=== PATIENT | female | born 1980 | race Two or more races ===

== ENCOUNTER 2018-08-08 16:48 | Inpatient (IN) | payer BC ==
[~2018-08-08] VITALS: Ht 152.4 cm; Wt 74.5 kg
[2018-08-08 20:21] VITALS: BP 142/67; RESP 18
[2018-08-08 20:30] VITALS: Ht 152.4 cm; Wt 74.5 kg
[2018-08-08 20:47] VITALS: PULSE 86
[2018-08-08] MEDS ORDERED: ACETAMINOPHEN 325 MG TAB PO PRN (22:30)
[2018-08-08] MEDS ORDERED: ONDANSETRON 4 MG INJ IV PRN (22:30)
[2018-08-08] MEDS: CEFTRIAXONE 1 GM/50 ML (PMX) 50 ML IVPB SCH (23:06)
[2018-08-08] MEDS: DEXTROSE 5%-0.9% NACL 1,000 ML IV SCH (23:06)
[2018-08-09 01:43] VITALS: BP 134/72; PULSE 85; RESP 18
[2018-08-09] MEDS: PANTOPRAZOLE 40 MG INJ IV SCH (05:52)
[2018-08-09 07:54] VITALS: BP 132/63; PULSE 86; RESP 18
[2018-08-09] MEDS: DEXTROSE 5%-0.9% NACL 1,000 ML IV SCH ×2 (09:10→19:06)
--- NOTE | 2018-08-09 10:48 | QN ---
Documentation Comment seen and examined LAURIE GUADARRAMA MD Aug 09, 2018 10:48
--- NOTE | 2018-08-09 12:06 | HP ---
DATE OF ADMISSION: 08/08/2018 REASON FOR ADMISSION: Transferred from [facility] secondary to abdominal pain. HISTORY OF PRESENT ILLNESS: This is a 38-year-old woman with no past medical history who presented t o [facility] on 08/06/2018 secondary to a right upper quadrant pain. According to the patien t, she was having severe right upper quadrant pain, nausea and vomiting. The patient had some interm ittent fevers and chills. The patient denied any prior episodes. Patient was found to have lipase o f 404. Amylase was 2656, but ETOH levels are less than 5. AST was 632, ALT 447, alkaline phosphatas e 88. CBC showed white count of 14.4, hemoglobin 13.5. The patient had a CT of the abdomen and pelv is that showed findings consistent with acute pancreatitis, no evidence of pseudocyst or distended ga llbladder to suggest ultrasound correlation. The patient had abdominal ultrasound done that showed c holelithiasis, no evidence of ductal dilatation. Mildly diffusely enlarged pancreas. There is low s uspicion for pancreatitis. The patient was treated symptomatically and was also seen by surgery and the surgeon wanted to wait until the pancreatitis is resolved before going for cholecystectomy; [facility], the patient was transferred due to insurance reasons. PAST MEDICAL HISTORY: None. ALLERGIES: None. PAST SURGICAL HISTORY: None. SOCIAL HISTORY: Denies any history of alcohol or any recreational drug use. FAMILY HISTORY: Daughter had a cholecystectomy. REVIEW OF SYSTEMS: The patient still complains of some right upper quadrant pain. Denies any nausea , vomiting, denies any headache, any blurry vision. Denies any chest pain, any shortness of breath. Denies any hematemesis, any melena, any blood per rectum. Denies any focal neurological deficit. PHYSICAL EXAMINATION: VITAL SIGNS: Currently, blood pressure 132/63, afebrile, heart rate is 86, saturating 97%. GENERAL: The patient is awake, alert, oriented, appears to be in mild distress secondary to right up per quadrant pain. HEENT: No scleral icterus. NECK: Supple. HEART: Regular rhythm. LUNGS: Clear to auscultate bilaterally. ABDOMEN: Some tenderness present in the right upper quadrant region. Positive bowel sounds. EXTREMITIES: No clubbing, cyanosis, or edema. DIAGNOSTIC DATA: Potassium of 3.3, BUN of 4, creatinine 0.65, AST is 0.31, ALT is 118, total bilirub in is 0.3. Lipase is down to 153, white count 8.1, hemoglobin 11.2, platelet count 273. CT of the a bdomen and pelvis which was done on 08/05/2018. Findings consistent with acute pancreatitis. No leonel dence of pseudocyst. Distended gallbladder. Suggest ultrasound correlation and abdominal ultrasound which was done on 08/06/2018 showed cholelithiasis, no evidence of ductal dilatation, mildly diffuse enlarged pancreas suspicious for pancreatitis. ASSESSMENT AND PLAN: This is a 38-year-old female who presented with: 1. Acute pancreatitis, likely secondary to gallstones. 2. Cholelithiasis. 3. Abnormal liver function tests, resolved. 4. Hypokalemia. 5. Obesity. PLAN: At this period of time, the patient is admitted to med/surg unit. We will continue the patien t on fluids, IV antibiotics. However, clinically the patient seemed to be improving. We will also c all surgical consultation. Rest of the treatment will depend on the patient's hospitalization course . Dictated By: LAURIE GARDUNO/ZARA Conf#: [id number] DID#: [id number] CC: FILI PENALOZA MD;*End*
--- NOTE | 2018-08-09 12:41 | CONS ---
Assessment/Plan Assessment/Plan Assessment/Plan (Daily) 1. Pancreatitis: Likely secondary to cholelithiasis; improving -Refeeding okay from surgical ; low-fat low-cholesterol diet -gi consult 2. Cholelithiasis -Recommend eventual cholecystectomy 3. Transaminitis with mildly elevated bilirubin from outside hospital: Much improved; likely passed stone -Monitor 4. Abdominal pain: Likely 2/2 #1 and 2 -Pain management 5. Obesity BMI: 32 -diet and exercise optimization -encourage weight loss Thank you. Patient seen and examined in collaboration with Dr. Piero Plascencia. Consultation Date/Type/Reason Admit Date/Time Aug 08, 2018 at 20:10 Date of Consultation: Aug 09, 2018 Type of Consult Surgical Reason for Consultation Pancreatitis, gallstones Requesting Provider: LAURIE GUADARRAMA MD Date/Time of Note DATE: 08/09/18 TIME: 12:35 Hx of Present Illness Kathy Martini is a 38-year-old woman with no significant past medical history who presented to outside hospital with complaints of right upper quadrant pain. Abdominal pain is described as severe and persistent. Associated symptoms include nausea with vomiting, nonbloody emesis, subjective fevers and chills. She denies chest pain, palpitations, congested cough, change in bowel or bladder habits, dysuria, melena, hematemesis, hematochezia, trauma to the abdomen. On workup, she was noted to have pancreatitis with lipase of 1234, as well as transaminitis and minimally elevated bilirubin. Notably, she was also noted to have cholelithiasis on ultrasound. She was transferred to [facility] for insurance reasons. General surgery was asked to evaluate. 12 point review of systems is performed and is negative except for as stated in HPI. Past Medical History Obesity Medications Current Medications Dextrose/Sodium Chloride 1,000 ml @ 100 mls/hr Q10H IV Last administered on 08/09/18at 09:10; Admin Dose 100 MLS/HR; Start 08/08/18 at 22:30 Pantoprazole (Protonix Iv) 40 mg DAILY@06 IV Last administered on 08/09/18at 05:52; Admin Dose 40 MG; Start 08/09/18 at 06:00 Ceftriaxone Sodium 50 ml @ 100 mls/hr Q24H IVPB Last administered on 08/08/18at 23:06; Admin Dose 100 MLS/HR; Start 08/08/18 at 22:30 Acetaminophen (Tylenol Tab) 650 mg Q6H PRN PO MILD PAIN(1-3)OR ELEVATED TEMP; Start 08/08/18 at 22:30 Ondansetron HCl (Zofran Inj) 4 mg Q6H PRN IV NAUSEA AND/OR VOMITING; Start 08/08/18 at 22:30 Morphine Sulfate (morphine) 2 mg Q4H PRN IV SEVERE PAIN LEVEL 7-10; Start 08/08/18 at 22:30 Influenza Virus Vaccine Quadrival (Fluzone) 0.5 ml ONCE ONCE IM* ; Start 08/11/18 at 10:00; Stop 08/11/18 at 10:01 Allergies: Coded Allergies: No Known Allergy (Unverified , 08/08/18) Past Surgical History Past Surgical Hx: no surgical history Family History Significant Family History: no pertinent family hx Social History Smoking Status: Never smoker Exam/Review of Systems Exam Vitals Vital Signs Date Temp Pulse Resp B/P (MAP) Pulse Ox O2 O2 Flow FiO2 Time Delivery Rate 08/09/18 98.0 86 18 132/63 97 07:54 (86) Intake and Output 08/08/18 08/08/18 08/09/18 1515:00 23:00 07:00 IntakeIntake Total 650 ml BalanceBalance 650 ml Constitutional: alert, oriented Psych: nl mood/affect; No anxiety Head: normocephalic, atraumatic Eyes: nl conjunctiva, EOMI, nl lids, nl sclera ENMT: nl external ears & nose, nl lips & teeth, mucosa pink and moist Neck: supple, non-tender Respiratory: normal air movement; No congested cough, No labored breathing Cardiovascular: regular rate and rhythm, nl pulses Gastrointestinal: soft, non-tender Musculoskeletal: nl extremities to inspection, nl gait and stance Extremities: normal pulses Neurological: nl mental status, nl speech, nl strength Skin: rash or lesions Lymph: nl lymph nodes Results Result Diagram: 08/09/1843908/09/18439 Results 24hrs Laboratory Tests Test 08/09/18 04:40 White Blood Count 8.1 Red Blood Count 3.59 L Hemoglobin 11.2 L Hematocrit 33.4 L Mean Corpuscular Volume 93.0 Mean Corpuscular Hemoglobin 31.2 Mean Corpuscular Hemoglobin Concent 33.5 Red Cell Distribution Width 11.8 Platelet Count 272 Mean Platelet Volume 10.0 Immature Granulocytes % 0.400 Neutrophils % 54.7 Lymphocytes % 33.3 Monocytes % 7.8 Eosinophils % 3.2 Basophils % 0.6 Nucleated Red Blood Cells % 0.0 Immature Granulocytes # 0.030 Neutrophils # 4.4 Lymphocytes # 2.7 Monocytes # 0.6 Eosinophils # 0.3 Basophils # 0.1 Nucleated Red Blood Cells # 0.0 Sodium Level 144 Potassium Level 3.3 L Chloride Level 102 Carbon Dioxide Level 33 H Anion Gap 9 Blood Urea Nitrogen 4 L Creatinine 0.65 Est Glomerular Filtrat Rate mL/min > 60 Glucose Level 119 Calcium Level 8.8 Total Bilirubin 0.3 Direct Bilirubin 0.00 Indirect Bilirubin 0.3 Aspartate Amino Transf (AST/SGOT) 31 Alanine Aminotransferase (ALT/SGPT) 118 H Alkaline Phosphatase 79 Total Protein 7.3 Albumin 3.6 Globulin 3.70 H Albumin/Globulin Ratio 0.97 Amylase Level 72 Lipase 153 Medications Medication Current Medications Dextrose/Sodium Chloride 1,000 ml @ 100 mls/hr Q10H IV Last administered on 08/09/18at 09:10; Admin Dose 100 MLS/HR; Start 08/08/18 at 22:30 Pantoprazole (Protonix Iv) 40 mg DAILY@06 IV Last administered on 08/09/18at 05:52; Admin Dose 40 MG; Start 08/09/18 at 06:00 Ceftriaxone Sodium 50 ml @ 100 mls/hr Q24H IVPB Last administered on 08/08/18at 23:06; Admin Dose 100 MLS/HR; Start 08/08/18 at 22:30 Acetaminophen (Tylenol Tab) 650 mg Q6H PRN PO MILD PAIN(1-3)OR ELEVATED TEMP; Start 08/08/18 at 22:30 Ondansetron HCl (Zofran Inj) 4 mg Q6H PRN IV NAUSEA AND/OR VOMITING; Start 08/08/18 at 22:30 Morphine Sulfate (morphine) 2 mg Q4H PRN IV SEVERE PAIN LEVEL 7-10; Start 08/08/18 at 22:30 Influenza Virus Vaccine Quadrival (Fluzone) 0.5 ml ONCE ONCE IM* ; Start 08/11/18 at 10:00; Stop 08/11/18 at 10:01 ARIADNE PINA NP Aug 09, 2018 12:41
--- NOTE | 2018-08-09 13:14 | CONS ---
Assessment/Plan Assessment/Plan Hospital Course (Demo Recall) Summary Assessment and Plan: Assessment: Gallstone pancreatitis -Likely stone passage Cholelithiasis -Surgery consulted, possible arthroscopic cholecystectomy tomorrow Elevated ALT-trending down Plan: Continue clear liquid diet Monitor labs, if increase in LFTs are noted we will plan for MRCP Endoscopy - risks/benefits/alternatives/indications of procedure and sedation/anesthesia discussed with patient who states understanding and gives informed consent to proceed. F/u surgical recommendations Patient seen in collaboration with Dr. Clifford CC: CALVIN CLIFFORD MD ; Consultation Date/Type/Reason Admit Date/Time Aug 08, 2018 at 20:10 Date of Consultation: Aug 09, 2018 Type of Consult GI Reason for Consultation Gallstone pancreatitis Date/Time of Note DATE: 08/09/18 TIME: 13:02 Hx of Present Illness This is a 38-year-old female who was admitted to [facility] for complaints of severe upper abdominal pain there she underwent extensive imaging findings cholelithiasis as well as evidence consistent with acute pancreatitis as well as elevated lipase. Of note no evidence of biliary dilation, common bile duct measured 5 mm. Hospitalist at [facility] for about 4 days until stabilized and transferred to [facility] for insurance reasons. Labs checked here show a normal total bilirubin as well as normal alkaline phosphatase AST is within normal limits and ALT is elevated at 118, Lipase is 153, and mild normocytic anemia is noted. At time evaluation patient denies nausea/vomiting, she c/o mild upper abdominal pain with palpation. She is currently on a clear liquid diet tolerating well. She has been assessed by surgery with possible plan of lap cholecystectomy tomorrow. Review of Systems: A 12 system, review was conducted and is negative except as noted in the HPI or here. Past Medical History Medications Current Medications Dextrose/Sodium Chloride 1,000 ml @ 100 mls/hr Q10H IV Last administered on 08/09/18at 09:10; Admin Dose 100 MLS/HR; Start 08/08/18 at 22:30 Pantoprazole (Protonix Iv) 40 mg DAILY@06 IV Last administered on 08/09/18at 05:52; Admin Dose 40 MG; Start 08/09/18 at 06:00 Ceftriaxone Sodium 50 ml @ 100 mls/hr Q24H IVPB Last administered on 08/08/18at 23:06; Admin Dose 100 MLS/HR; Start 08/08/18 at 22:30 Acetaminophen (Tylenol Tab) 650 mg Q6H PRN PO MILD PAIN(1-3)OR ELEVATED TEMP; Start 08/08/18 at 22:30 Ondansetron HCl (Zofran Inj) 4 mg Q6H PRN IV NAUSEA AND/OR VOMITING; Start 08/08/18 at 22:30 Morphine Sulfate (morphine) 2 mg Q4H PRN IV SEVERE PAIN LEVEL 7-10; Start 08/08/18 at 22:30 Influenza Virus Vaccine Quadrival (Fluzone) 0.5 ml ONCE ONCE IM* ; Start 08/11/18 at 10:00; Stop 08/11/18 at 10:01 Allergies: Coded Allergies: No Known Allergy (Unverified , 08/08/18) Past Surgical History Past Surgical Hx: no surgical history Social History Smoking Status: Never smoker Exam/Review of Systems Exam Vitals Vital Signs Date Temp Pulse Resp B/P (MAP) Pulse Ox O2 O2 Flow FiO2 Time Delivery Rate 08/09/18 98.0 86 18 132/63 97 07:54 (86) Intake and Output 08/08/18 08/08/18 08/09/18 1515:00 23:00 07:00 IntakeIntake Total 650 ml BalanceBalance 650 ml Exam PHYSICAL EXAMINATION: GENERAL: Well developed, well nourished, alert & oriented x 3, in no acute distress SKIN: No lesions EYES: Pupils equal reactive to light, no discharge. EARS/NOSE AND THROAT: Ears normal, nose normal, oropharynx normal, oral membranes well hydrated without lesions. NECK: Supple, no masses. CHEST: Inspection within normal limits. CARDIOVASCULAR: Heart: Regular rate and rhythm, no murmurs. RESPIRATORY: Lungs clear to auscultation. GASTROINTESTINAL AND LIVER: Abdomen: Soft, upper abdominal tenderness, non- distended, no hernias, no masses, no organomegaly, no ascites, no guarding, no rebound tenderness, normoactive bowel sounds. Rectal: Deferred. EXTREMITIES: No cyanosis, clubbing or edema. Results Result Diagram: 08/09/1843908/09/18439 Results 24hrs Laboratory Tests Test 08/09/18 04:40 White Blood Count 8.1 Red Blood Count 3.59 L Hemoglobin 11.2 L Hematocrit 33.4 L Mean Corpuscular Volume 93.0 Mean Corpuscular Hemoglobin 31.2 Mean Corpuscular Hemoglobin Concent 33.5 Red Cell Distribution Width 11.8 Platelet Count 272 Mean Platelet Volume 10.0 Immature Granulocytes % 0.400 Neutrophils % 54.7 Lymphocytes % 33.3 Monocytes % 7.8 Eosinophils % 3.2 Basophils % 0.6 Nucleated Red Blood Cells % 0.0 Immature Granulocytes # 0.030 Neutrophils # 4.4 Lymphocytes # 2.7 Monocytes # 0.6 Eosinophils # 0.3 Basophils # 0.1 Nucleated Red Blood Cells # 0.0 Sodium Level 144 Potassium Level 3.3 L Chloride Level 102 Carbon Dioxide Level 33 H Anion Gap 9 Blood Urea Nitrogen 4 L Creatinine 0.65 Est Glomerular Filtrat Rate mL/min > 60 Glucose Level 119 Calcium Level 8.8 Total Bilirubin 0.3 Direct Bilirubin 0.00 Indirect Bilirubin 0.3 Aspartate Amino Transf (AST/SGOT) 31 Alanine Aminotransferase (ALT/SGPT) 118 H Alkaline Phosphatase 79 Total Protein 7.3 Albumin 3.6 Globulin 3.70 H Albumin/Globulin Ratio 0.97 Amylase Level 72 Lipase 153 Medications Medication Current Medications Dextrose/Sodium Chloride 1,000 ml @ 100 mls/hr Q10H IV Last administered on 08/09/18at 09:10; Admin Dose 100 MLS/HR; Start 08/08/18 at 22:30 Pantoprazole (Protonix Iv) 40 mg DAILY@06 IV Last administered on 08/09/18at 05:52; Admin Dose 40 MG; Start 08/09/18 at 06:00 Ceftriaxone Sodium 50 ml @ 100 mls/hr Q24H IVPB Last administered on 08/08/18at 23:06; Admin Dose 100 MLS/HR; Start 08/08/18 at 22:30 Acetaminophen (Tylenol Tab) 650 mg Q6H PRN PO MILD PAIN(1-3)OR ELEVATED TEMP; Start 08/08/18 at 22:30 Ondansetron HCl (Zofran Inj) 4 mg Q6H PRN IV NAUSEA AND/OR VOMITING; Start 08/08/18 at 22:30 Morphine Sulfate (morphine) 2 mg Q4H PRN IV SEVERE PAIN LEVEL 7-10; Start 08/08/18 at 22:30 Influenza Virus Vaccine Quadrival (Fluzone) 0.5 ml ONCE ONCE IM* ; Start 08/11/18 at 10:00; Stop 08/11/18 at 10:01 VALERIO MAKI Aug 09, 2018 13:14
[2018-08-09 14:23] VITALS: BP 127/68; PULSE 77; RESP 18
[2018-08-09] MEDS ORDERED: POTASSIUM CHLORIDE (SR) 20 MEQ TAB PO ONE (19:00)
[2018-08-09 20:30] VITALS: BP 140/63; PULSE 79; RESP 19
[2018-08-09] MEDS: CEFTRIAXONE 1 GM/50 ML (PMX) 50 ML IVPB SCH (22:26)
[2018-08-10] VITALS (22 sets, daily range): BP systolic 109–146; BP diastolic 53–75; PULSE 74–112; RESP 12–18
[2018-08-10] MEDS: morphine 2 MG INJ IV PRN ×4 (01:16→22:04)
[2018-08-10] MEDS ORDERED: DIPHENOXYLATE/ATROPINE TAB PO PRN (01:30)
[2018-08-10] MEDS: DEXTROSE 5%-0.9% NACL 1,000 ML IV SCH ×3 (04:34→22:41)
[2018-08-10] MEDS: PANTOPRAZOLE 40 MG INJ IV SCH (05:57)
--- NOTE | 2018-08-10 06:57 | PREAC ---
Date/Time of Note Date/Time of Note DATE: 08/10/18 TIME: 06:57 Anesthesia Eval and Record Evaluation Time Pre-Procedure Interview DATE: 08/10/18 TIME: 06:57 Age 38 Sex female NPO: 8 hrs Preoperative diagnosis Gallstone pancreatitis Planned procedure Laparoscopic cholecystectomy Past Medical History Past Medical History: Includes GI: Obesity Heme: Anemia Infection(s): Other (R/o C. Diff) Surgery & Anesthesia Issues No known issue Meds Anticoagulation: No Beta Zhang within 24 hr: No Reason Beta Zhang not given: Pt. not on B-Zhang Current Medications Dextrose/Sodium Chloride 1,000 ml @ 100 mls/hr Q10H IV Last administered on 08/10/18at 04:34; Admin Dose 100 MLS/HR; Start 08/08/18 at 22:30 Pantoprazole (Protonix Iv) 40 mg DAILY@06 IV Last administered on 08/10/18at 05:57; Admin Dose 40 MG; Start 08/09/18 at 06:00 Ceftriaxone Sodium 50 ml @ 100 mls/hr Q24H IVPB Last administered on 08/09/18at 22:26; Admin Dose 100 MLS/HR; Start 08/08/18 at 22:30 Acetaminophen (Tylenol Tab) 650 mg Q6H PRN PO MILD PAIN(1-3)OR ELEVATED TEMP; Start 08/08/18 at 22:30 Ondansetron HCl (Zofran Inj) 4 mg Q6H PRN IV NAUSEA AND/OR VOMITING; Start 08/08/18 at 22:30 Morphine Sulfate (morphine) 2 mg Q4H PRN IV SEVERE PAIN LEVEL 7-10 Last administered on 08/10/18at 01:16; Admin Dose 2 MG; Start 08/08/18 at 22:30 Influenza Virus Vaccine Quadrival (Fluzone) 0.5 ml ONCE ONCE IM* ; Start at 10:00; Stop 08/11/18 at 10:01 Diphenoxylate HCl/ Atropine (Lomotil) 1 tab Q6H PRN PO DIARRHEA; Start 08/10/18 at 01:30 Meds reviewed: Yes Allergies Coded Allergies: No Known Allergy (Unverified , 08/08/18) Allergies Reviewed: Yes Labs/Studies Labs Reviewed: Reviewed by anesthesiologist Result Diagram: 08/10/18 0436 08/09/18 0440 Laboratory Tests 08/10/18 04:36 test: Negative Pre-procedure Exam Last vitals Vital Signs Date Temp Pulse Resp B/P (MAP) Pulse Ox O2 O2 Flow FiO2 Time Delivery Rate 08/10/18 98.4 76 18 137/68 97 02:37 (91) Airway: Adequate mouth opening Mallampati: Mallampati II Teeth: Normal Lung: Normal Heart: Normal ASA Physical Status ASA physical status: 2 Emergency: None Planned Anesthetic General/MAC: ETT Planned Pain Management Parenteral pain med Pre-operative Attestations Prior to commencing anesthesia and surgery, the patient was re-evaluated, there was verification of: *The patient's identity *The results of appropriate recent lab work and preoperative vital signs *The above evaluation not changing prior to induction *Anesthetic plan, risk benefits, alternative and complications discussed with p atient/family; questions answered; patient/family understands, accepts and wishes to proceed. DUY KIM MD Aug 10, 2018 06:57
[2018-08-10] MEDS ORDERED: BUPIVACAINE 0.5%/EPI (SDV) 30 ML INJ ONE (07:00)
[2018-08-10] MEDS ORDERED: LIDOCAINE 1% (MPF) 30 ML INJ ONE (07:00)
[2018-08-10] MEDS ORDERED: IOHEXOL 300MG/ML 30 ML BTL ONE (07:01)
[2018-08-10] MEDS ORDERED: LIDOCAINE 2% (SDV) 5 ML INJ ONE (07:36)
[2018-08-10] MEDS ORDERED: SUCCINYLCHOLINE CHLORIDE 100 MG/5 ML SYG IV ONE (07:36)
[2018-08-10] MEDS ORDERED: NEOSTIGMINE 3 MG/3 ML SYRINGE ONE (07:36)
[2018-08-10] MEDS ORDERED: ROCURONIUM 50 MG INJ ONE (07:36)
[2018-08-10] MEDS ORDERED: PROPOFOL 20 ML ONE (07:36)
[2018-08-10] MEDS ORDERED: MEPERIDINE 100 MG INJ ONE (07:36)
[2018-08-10] MEDS ORDERED: GLYCOPYRROLATE 0.4 MG INJ ONE (07:36)
--- NOTE | 2018-08-10 07:48 | PN ---
Date/Time of Note Date/Time of Note DATE: 08/10/18 TIME: 07:45 Assessment/Plan Lines/Catheters IV Catheter Type (from Nrs): Peripheral IV Assessment/Plan Chief Complaint/Hosp Course 1. Pancreatitis: Likely secondary to cholelithiasis; resolved -Refeeding okay from surgical standpoint- npo for sx 2. Cholelithiasis -cholecystectomy today 3. Transaminitis with mildly elevated bilirubin from outside hospital: Much improved; likely passed stone -Monitor 4. Abdominal pain: Likely 2/2 #1 and 2; improved -Pain management 5. Obesity BMI: 32 -diet and exercise optimization -encourage weight loss Thank you. Patient seen and examined in collaboration with Dr. Piero Plascencia. Subjective 24 Hr Interval Summary OR today. No fevers, chills, sob, congested cough, cp, palpitations, pina, dizziness, n/v/d/dysuria. Exam/Review of Systems Vital Signs Vitals Vital Signs Date Temp Pulse Resp B/P (MAP) Pulse Ox O2 O2 Flow FiO2 Time Delivery Rate 08/10/18 98.4 76 18 137/68 97 02:37 (91) Intake and Output 08/09/18 08/09/18 08/10/18 1515:00 23:00 07:00 IntakeIntake Total 350 ml 1650 ml 1250 ml OutputOutput Total 100 ml BalanceBalance 350 ml 1550 ml 1250 ml Exam Free Text/Dictation Constitutional: alert, oriented Psych: nl mood/affect; No anxiety Head: normocephalic, atraumatic Eyes: nl conjunctiva, EOMI, nl lids, nl sclera ENMT: nl external ears & nose, nl lips & teeth, mucosa pink and moist Neck: supple, non-tender Respiratory: normal air movement; No congested cough, No labored breathing Cardiovascular: regular rate and rhythm, nl pulses Gastrointestinal: soft, min-tender BUQ, nd Musculoskeletal: nl extremities to inspection, nl gait and stance Extremities: normal pulses Neurological: nl mental status, nl speech, nl strength Skin: rash or lesions Lymph: nl lymph nodes Results Result Diagram: 08/10/18 0436 08/10/18 0436 ARIADNE PINA NP Aug 10, 2018 07:48
[2018-08-10] MEDS ORDERED: BUPIVACAINE 0.5%/EPI (SDV) 30 ML INJ INJ ONE (07:50)
[2018-08-10] MEDS ORDERED: LIDOCAINE 1% (MPF) 30 ML INJ INJ ONE (07:50)
[2018-08-10] MEDS ORDERED: METOCLOPRAMIDE 10 MG INJ IV PRN (08:00)
[2018-08-10] MEDS ORDERED: HYDROmorphONE 1 MG/5 ML IV SYRINGE IV PRN ×3 (08:00)
[2018-08-10] MEDS ORDERED: ONDANSETRON 4 MG INJ IV PRN (08:00)
[2018-08-10] MEDS ORDERED: OXYCODONE/ACETAMINOPHEN (5/325) TAB PO PRN ×2 (08:00)
[2018-08-10] MEDS ORDERED: FENTAnyl 50 MCG/ML VIAL IV PRN ×3 (08:00)
[2018-08-10] MEDS ORDERED: EPHEDrine SULFATE 50 MG/5 ML SYG IV PRN (08:00)
[2018-08-10] MEDS ORDERED: MEPERIDINE 25 MG INJ IV PRN (08:00)
[2018-08-10] MEDS ORDERED: hydrALAzine 20 MG INJ IV PRN (08:00)
[2018-08-10] MEDS ORDERED: LABETALOL HCL 20MG INJ IV PRN (08:00)
[2018-08-10] MEDS ORDERED: DIPHENHYDRAMINE 50 MG INJ IV PRN (08:00)
[2018-08-10] MEDS ORDERED: MIDAZOLAM 1 MG/ML 2 ML INJ IV PRN (08:00)
[2018-08-10] MEDS ORDERED: METOCLOPRAMIDE 10 MG INJ ONE (08:06)
[2018-08-10] MEDS ORDERED: ONDANSETRON 4 MG INJ ONE (08:06)
[2018-08-10] MEDS ORDERED: metroNIDAZOLE 500 MG/NS (PMX) 100 ML IVPB ONE (09:32)
[2018-08-10] MEDS ORDERED: CEFAZOLIN 1 GM INJ ONE (09:32)
--- NOTE | 2018-08-10 09:51 | OPR ---
Date/Time of Note Date/Time of Note DATE: 08/10/18 TIME: 09:46 Operative Report Free Text/Dictation Preoperative Diagnosis: Symptomatic cholelithiasis Pancreatitis Abnormal LFTs BMI 32 Postoperative Diagnosis: Symptomatic cholelithiasis Pancreatitis Abnormal LFTs BMI 32 Abnormal liver color Necrotic tissue superior to lv hepatis between stomach and gallbladder Operation(s) Performed: 1. 3 port laparoscopic cholecystectomy 2. Laparoscopic liver wedge resection biopsy 3. ICG fluorescence cholangiography 4. Intraoperative cholangiogram 5. [place], [id number] 6. Laparoscopic guided bilateral transversus abdominis plane block Surgeon: Lotus Barber MD School Physical Therapist: Mary Ellen Hlot NP Anesthesia: general, local, & regional Anesthesiologist: BRI Dorado MD Estimated Blood Loss: 30 ml's Specimens: Gallbladder Liver Necrotic tissue on lv hepatis Tubes/Drains: 19F Jacoby Complications: None Pt Condition Post Procedure: stable Disposition: PACU Indications: 38-year-old female with gallstones, abnormal LFTs, pancreatitis, and abdominal pain here for cholecystectomy. Risks include but are not limited to bleeding, infection, abscess, seroma, damage to intestines, damage to the liver, damage to biliary tree, hernia formation, chronic pain, biloma, need for reoperations or further surgeries, [place], stroke, PE, DVT, pneumonia, organ failures, or even . Procedure Description: Patient was brought and placed supine on the operating table SCDs were placed, preoperative antibiotics were administered, all pressure points were well- padded, and after induction of anesthesia patient was prepped and draped in usual sterile fashion and timeout was performed. Incision was made in the supraumbilical region, Veress was safely inserted, and after a negative SIP test, abdomen was insufflated to 15mmHg. Veress was removed and 5mm port was safely inserted. Laparoscopy was performed with a 5 mm 30 scope. No injuries were identified. The liver looks somewhat abnormal color. Gallbladder is bit thickened tissue and possible cholecystitis. There is necrotic tissue right on lv hepatis between stomach and the gallbladder. This is biopsied and sent to pathology. 12 mm port is placed in subxiphoid under direct visualization followed by another 5 mm port in the right upper quadrant. All port sites were injected with quarter percent Marcaine with epi and 1% lidocaine prior to any incisions. Bilateral transversus abdominis plane block was performed under laparoscopic visualization to aid with pain control intra-and postoperatively. Patient was placed in reverse Trendelenburg and right side up on gallbladder was retracted superolaterally. The gallbladder was large and distended. Using electrocautery and blunt dissection I was able to identify the cystic artery and cystic duct. The duct tapered into the gallbladder. Full critical angle view was identified. However just to make sure of the anatomy due to this necrotic tissue top-down approach was performed on the gallbladder was fully from the liver using electrocautery. ICG fluorescence cholangiography was performed. The liver lit up. However the gallbladder and the bowel does not lit up. At this point I elected to perform formal cholangiogram. Cystotomy was created cholangiogram catheter inserted and cholangiography performed. There is no filling defects. Small bowel easily fills up. Hepatic duct also are identified. At this point cholangiogram catheter was removed clips were placed twice proximally once distally on the duct and transected. The ulcer was clipped twice proximally once distally and then transected. Hemostasis was obtained. Gallbladder was placed in an Endo Catch bag and removed through the subxiphoid port site. There was complete hemostasis. Due to the abnormality of the liver decision was made to perform liver wedge re section which was done with electrocautery and scissor with complete hemostasis right after. The specimen was sent to pathology for further evaluation. 19F jacoby drain was placed through lateral incision to drain the liver and gallbladder sites. 12 mm made port site fascia was closed with Endo Close of an 0 Vicryl in a [id number] manner. Ports and CO2 were removed under direct visualization. Next complete hemostasis. Wounds were thoroughly irrigated skin was closed with 4-0 Monocryl in subcuticular fashion. Dermabond was applied. Patient was extubated and transferred to recovery room in stable condition and all counts were correct and the end of the operation 2. LOTUS BARBER MD Aug 10, 2018 09:51
[2018-08-10] MEDS ORDERED: morphine 2 MG INJ IV PRN (10:00)
[2018-08-10] MEDS ORDERED: ACETAMINOPHEN 325 MG TAB PO PRN (10:00)
[2018-08-10] MEDS ORDERED: HYDROCODONE/APAP (5/325) TAB PO PRN ×2 (10:00)
[2018-08-10] MEDS ORDERED: IBUPROFEN 600 MG TAB PO PRN (10:00)
--- NOTE | 2018-08-10 11:44 | PN ---
Date/Time of Note Date/Time of Note DATE: 08/10/18 TIME: 11:42 Assessment/Plan VTE Prophylaxis Risk score (from Ns)>0 risk: 3 SCD applied (from Ns): Yes Pharmacological prophylaxis: NA/contraindicated Pharm contraindication: low risk/ambulating Lines/Catheters IV C[facility]ter Type (from [email or web address] Peripheral IV Assessment/Plan Assessment/Plan his is a 38-year-old female who presented with: 1. Acute pancreatitis, likely secondary to gallstones. Post lap jake pod # 0 2. Cholelithiasis. 3. Abnormal liver function tests, resolved. 4. Hypokalemia. 5. Obesity.' pLAN -Postop care -Pain control -Fluids -Diet per surgery Result Diagram: 08/10/186 08/10/18 0436 Results 24hrs Laboratory Tests Test 08/09/18 18:25 08/10/18 04:36 Urine Test NEGATIVE White Blood Count 8.8 Red Blood Count 3.35 L Hemoglobin 10.6 L Hematocrit 31.1 L Mean Corpuscular Volume 92.8 Mean Corpuscular Hemoglobin 31.6 Mean Corpuscular Hemoglobin Concent 34.1 Red Cell Distribution Width 11.7 Platelet Count 267 Mean Platelet Volume 9.8 Immature Granulocytes % 0.300 Neutrophils % 75.9 Lymphocytes % 16.1 Monocytes % 6.4 Eosinophils % 1.0 Basophils % 0.3 Nucleated Red Blood Cells % 0.0 Immature Granulocytes # 0.030 Neutrophils # 6.7 Lymphocytes # 1.4 Monocytes # 0.6 Eosinophils # 0.1 Basophils # 0.0 Nucleated Red Blood Cells # 0.0 Prothrombin Time 13.5 Prothrombin Time Ratio 1.1 INR International Normalized Ratio 1.02 Activated Partial Thromboplast Time 34.7 Sodium Level 144 Potassium Level 3.7 Chloride Level 107 Carbon Dioxide Level 28 Anion Gap 9 Blood Urea Nitrogen 3 L Creatinine 0.63 Est Glomerular Filtrat Rate mL/min > 60 Glucose Level 117 Calcium Level 8.8 Total Bilirubin 0.3 Direct Bilirubin 0.00 Indirect Bilirubin 0.3 Aspartate Amino Transf (AST/SGOT) 29 Alanine Aminotransferase (ALT/SGPT) 90 H Alkaline Phosphatase 82 Total Protein 6.8 Albumin 3.4 Globulin 3.40 H Albumin/Globulin Ratio 1.00 Subjective 24 Hr Interval Summary Free Text/Dictation Patient seen in the OR. Patient is status post cholecystectomy and wedge resection of the liver Exam/Review of Systems Exam Vitals Vital Signs Date Temp Pulse Resp B/P (MAP) Pulse Ox O2 O2 Flow FiO2 Time Delivery Rate 08/10/18 98.7 92 16 120/56 95 Room Air 10:48 (77) 08/10/18 2.0 10:08 Intake and Output 08/09/18 08/09/18 08/10/18 1515:00 23:00 07:00 IntakeIntake Total 350 ml 1650 ml 1250 ml OutputOutput Total 100 ml BalanceBalance 350 ml 1550 ml 1250 ml Exam Tender to palpation in the epigastrium TAVARES Drain in place Results Results 24hrs Laboratory Tests Test 08/09/18 18:25 08/10/18 04:36 Urine Test NEGATIVE White Blood Count 8.8 Red Blood Count 3.35 L Hemoglobin 10.6 L Hematocrit 31.1 L Mean Corpuscular Volume 92.8 Mean Corpuscular Hemoglobin 31.6 Mean Corpuscular Hemoglobin Concent 34.1 Red Cell Distribution Width 11.7 Platelet Count 267 Mean Platelet Volume 9.8 Immature Granulocytes % 0.300 Neutrophils % 75.9 Lymphocytes % 16.1 Monocytes % 6.4 Eosinophils % 1.0 Basophils % 0.3 Nucleated Red Blood Cells % 0.0 Immature Granulocytes # 0.030 Neutrophils # 6.7 Lymphocytes # 1.4 Monocytes # 0.6 Eosinophils # 0.1 Basophils # 0.0 Nucleated Red Blood Cells # 0.0 Prothrombin Time 13.5 Prothrombin Time Ratio 1.1 INR International Normalized Ratio 1.02 Activated Partial Thromboplast Time 34.7 Sodium Level 144 Potassium Level 3.7 Chloride Level 107 Carbon Dioxide Level 28 Anion Gap 9 Blood Urea Nitrogen 3 L Creatinine 0.63 Est Glomerular Filtrat Rate mL/min > 60 Glucose Level 117 Calcium Level 8.8 Total Bilirubin 0.3 Direct Bilirubin 0.00 Indirect Bilirubin 0.3 Aspartate Amino Transf (AST/SGOT) 29 Alanine Aminotransferase (ALT/SGPT) 90 H Alkaline Phosphatase 82 Total Protein 6.8 Albumin 3.4 Globulin 3.40 H Albumin/Globulin Ratio 1.00 Medications Medication Current Medications Dextrose/Sodium Chloride 1,000 ml @ 100 mls/hr Q10H IV Last administered on 08/10/18at 04:34; Admin Dose 100 MLS/HR; Start 08/08/18 at 22:30 Pantoprazole (Protonix Iv) 40 mg DAILY@06 IV Last administered on 08/10/18at 05:57; Admin Dose 40 MG; Start 08/09/18 at 06:00 Ceftriaxone Sodium 50 ml @ 100 mls/hr Q24H IVPB Last administered on 08/09/18at 22:26; Admin Dose 100 MLS/HR; Start 08/08/18 at 22:30 Acetaminophen (Tylenol Tab) 650 mg Q6H PRN PO MILD PAIN(1-3)OR ELEVATED TEMP; Start 08/08/18 at 22:30 Ondansetron HCl (Zofran Inj) 4 mg Q6H PRN IV NAUSEA AND/OR VOMITING; Start 08/08/18 at 22:30 Morphine Sulfate (morphine) 2 mg Q4H PRN IV SEVERE PAIN LEVEL 7-10 Last administered on 08/10/18at 01:16; Admin Dose 2 MG; Start 08/08/18 at 22:30 Influenza Virus Vaccine Quadrival (Fluzone) 0.5 ml ONCE ONCE IM* ; Start 08/11/18 at 10:00; Stop 08/11/18 at 10:01 Diphenoxylate HCl/ Atropine (Lomotil) 1 tab Q6H PRN PO DIARRHEA; Start 08/10/18 at 01:30 Hydromorphone HCl (Dilaudid) 0.2 mg PACU PRN IV MILD PAIN 1-3; Start 08/10/18 at 08:00; Stop 08/10/18 at 15:00 Hydromorphone HCl (Dilaudid) 0.4 mg PACU PRN IV MOD PAIN 4-6; Start 08/10/18 at 08:00; Stop 08/10/18 at 15:00 Hydromorphone HCl (Dilaudid) 0.6 mg PACU PRN IV SEVERE PAIN 7-10; Start 08/10/18 at 08:00; Stop 08/10/18 at 15:00 Fentanyl (Sublimaze) 25 mcg PACU ORDER PRN IV MILD PAIN 1-3; Start 08/10/18 at 08:00; Stop 08/10/18 at 15:00 Fentanyl (Sublimaze) 50 mcg PACU ORDER PRN IV MOD PAIN 4-6; Start 08/10/18 at 08:00; Stop 08/10/18 at 15:00 Fentanyl (Sublimaze) 75 mcg PACU ORDER PRN IV SEVERE PAIN 7-10; Start 08/10/18 at 08:00; Stop 08/10/18 at 15:00 Oxycodone/ Acetaminophen (Percocet (5/ 325)) 1 tab PACU ORDER PRN PO .PAIN 1-5; Start 08/10/18 at 08:00; Stop 08/10/18 at 15:00 Oxycodone/ Acetaminophen (Percocet (5/ 325)) 2 tab PACU ORDER PRN PO .PAIN 6-10; Start 08/10/18 at 08:00; Stop 08/10/18 at 15:00 Ondansetron HCl (Zofran Inj) 4 mg PACU ORDER PRN IV NAUSEA/VOMITING; Start 08/10/18 at 08:00; Stop 08/10/18 at 15:00 Metoclopramide HCl (Reglan) 10 mg PACU ORDER PRN IV NAUSEA/VOMITING; Start 08/10/18 at 08:00; Stop 08/10/18 at 15:00 Labetalol HCl (Labetalol) 5 mg PACU ORDER PRN IV HIGH BLOOD PRESSURE; Start 08/10/18 at 08:00; Stop 08/10/18 at 15:00 Hydralazine HCl (Apresoline) 5 mg PACU ORDER PRN IV HIGH BLOOD PRESSURE; Start 08/10/18 at 08:00; Stop 08/10/18 at 15:00 Ephedrine Sulfate 5 mg PACU ORDER PRN IV BLOOD PRESSURE SUPPORT; Start 08/10/18 at 08:00; Stop 08/10/18 at 15:00 Meperidine HCl (Demerol) 25 mg PACU ORDER PRN IV .RIGORS; Start 08/10/18 at 08:00; Stop 08/10/18 at 15:00 Diphenhydramine HCl (Benadryl) 25 mg PACU ORDER PRN IV .PRURITUS; Start 08/10/18 at 08:00; Stop 08/10/18 at 15:00 Midazolam HCl (Versed) 0.5 mg PACU ORDER PRN IV .ANXIETY; Start 08/10/18 at 08:00; Stop 08/10/18 at 15:00 Acetaminophen (Tylenol Tab) 650 mg Q6H PRN PO MILD PAIN(1-3)OR ELEVATED TEMP; Start 08/10/18 at 10:00 Ibuprofen (Motrin) 600 mg Q6H PRN PO PAIN LEVEL 1-3 ; Start 08/10/18 at 10:00 Acetaminophen/ Hydrocodone Bitart ([place] (5/325)) 2 tab Q4H PRN PO Pain 7-10; Start 08/10/18 at 10:00 Acetaminophen/ Hydrocodone Bitart ([place] (5/325)) 1 tab Q4H PRN PO Pain 4-6; Start 08/10/18 at 10:00 Morphine Sulfate (morphine) 2 mg Q2H PRN IV Breakthrough PAIN; Start 08/10/18 at 10:00 LAURIE GUADARRAMA MD Aug 10, 2018 11:44
--- NOTE | 2018-08-10 13:25 | PAC ---
Date/Time of Note Date/Time of Note DATE: 08/10/18 TIME: 13:25 Post-Anesthesia Notes Post-Anesthesia Note Last documented vital signs Vital Signs Date Temp Pulse Resp B/P (MAP) Pulse Ox O2 O2 Flow FiO2 Time Delivery Rate 08/10/18 98.7 92 16 120/56 95 Room Air 10:48 (77) 08/10/18 2.0 10:08 Activity: WNL Respiratory function: WNL Cardiovascular function: WNL Mental status: Baseline Pain reasonably controlled: Yes Hydration appropriate: Yes Nausea/Vomiting absent: Yes DUY KIM MD Aug 10, 2018 13:25
--- NOTE | 2018-08-10 14:21 | PN ---
Date/Time of Note Date/Time of Note DATE: 08/10/18 TIME: 14:12 Assessment/Plan VTE Prophylaxis Risk score (from Nsg)>0 risk: 3 SCD applied (from Nsg): Yes Pharmacological prophylaxis: other (scds) Lines/Catheters IV Catheter Type (from Nrs): Peripheral IV Assessment/Plan Hospital Course Summary Assessment and Plan: Assessment: Gallstone pancreatitis -Likely stone passage Cholelithiasis -S/p laparoscopic cholecystectomy, laparoscopic liver wedge resection biopsy, Intraoperative cholangiogram (neg for filling defect) Elevated ALT-trending down Plan: Diet per surgery Pain management IVF D/c planning per hospitalist/surgery team Patient seen in collaboration with Dr. Clifford Subjective: Course reviewed with nursing staff Patient interviewed and examined All labs, imaging and other results reviewed The patient resting in bed, lethargic from medication, daughter at bedside currently no c/o pain with pain medication. Encourage ambulation abd po intake as tolerated PHYSICAL EXAMINATION: GENERAL: Alert & oriented x 3, lethargic from sedation SKIN: Surgical incisions, TAVARES drain EYES: Pupils equal reactive to light, no discharge. EARS/NOSE AND THROAT: Ears normal, nose normal, oropharynx normal, oral membranes well hydrated without lesions. NECK: Supple, no masses. CHEST: Inspection within normal limits. CARDIOVASCULAR: Heart: Regular rate and rhythm, no murmurs. RESPIRATORY: Lungs clear to auscultation. GASTROINTESTINAL AND LIVER: Abdomen: Soft, upper abdominal tenderness, non-distended, no hernias, no masses, no organomegaly, no ascites, no guarding, no rebound tenderness, normoactive bowel sounds. Rectal: Deferred. EXTREMITIES: No cyanosis, clubbing or edema. Result Diagram: 08/10/18 0436 08/10/18 0436 Results 24hrs Laboratory Tests Test 08/09/18 18:25 08/10/18 04:36 Urine Test NEGATIVE White Blood Count 8.8 Red Blood Count 3.35 L Hemoglobin 10.6 L Hematocrit 31.1 L Mean Corpuscular Volume 92.8 Mean Corpuscular Hemoglobin 31.6 Mean Corpuscular Hemoglobin Concent 34.1 Red Cell Distribution Width 11.7 Platelet Count 267 Mean Platelet Volume 9.8 Immature Granulocytes % 0.300 Neutrophils % 75.9 Lymphocytes % 16.1 Monocytes % 6.4 Eosinophils % 1.0 Basophils % 0.3 Nucleated Red Blood Cells % 0.0 Immature Granulocytes # 0.030 Neutrophils # 6.7 Lymphocytes # 1.4 Monocytes # 0.6 Eosinophils # 0.1 Basophils # 0.0 Nucleated Red Blood Cells # 0.0 Prothrombin Time 13.5 Prothrombin Time Ratio 1.1 INR International Normalized Ratio 1.02 Activated Partial Thromboplast Time 34.7 Sodium Level 144 Potassium Level 3.7 Chloride Level 107 Carbon Dioxide Level 28 Anion Gap 9 Blood Urea Nitrogen 3 L Creatinine 0.63 Est Glomerular Filtrat Rate mL/min > 60 Glucose Level 117 Calcium Level 8.8 Total Bilirubin 0.3 Direct Bilirubin 0.00 Indirect Bilirubin 0.3 Aspartate Amino Transf (AST/SGOT) 29 Alanine Aminotransferase (ALT/SGPT) 90 H Alkaline Phosphatase 82 Total Protein 6.8 Albumin 3.4 Globulin 3.40 H Albumin/Globulin Ratio 1.00 Exam/Review of Systems Exam Vitals Vital Signs Date Temp Pulse Resp B/P (MAP) Pulse Ox O2 O2 Flow FiO2 Time Delivery Rate 08/10/18 98.7 92 16 120/56 95 Room Air 10:48 (77) 08/10/18 2.0 10:08 Intake and Output 08/09/18 08/09/18 08/10/18 1414:59 22:59 06:59 IntakeIntake Total 350 ml 1600 ml 1300 ml OutputOutput Total 100 ml BalanceBalance 350 ml 1500 ml 1300 ml Results Results 24hrs Laboratory Tests Test 08/09/18 18:25 08/10/18 04:36 Urine Test NEGATIVE White Blood Count 8.8 Red Blood Count 3.35 L Hemoglobin 10.6 L Hematocrit 31.1 L Mean Corpuscular Volume 92.8 Mean Corpuscular Hemoglobin 31.6 Mean Corpuscular Hemoglobin Concent 34.1 Red Cell Distribution Width 11.7 Platelet Count 267 Mean Platelet Volume 9.8 Immature Granulocytes % 0.300 Neutrophils % 75.9 Lymphocytes % 16.1 Monocytes % 6.4 Eosinophils % 1.0 Basophils % 0.3 Nucleated Red Blood Cells % 0.0 Immature Granulocytes # 0.030 Neutrophils # 6.7 Lymphocytes # 1.4 Monocytes # 0.6 Eosinophils # 0.1 Basophils # 0.0 Nucleated Red Blood Cells # 0.0 Prothrombin Time 13.5 Prothrombin Time Ratio 1.1 INR International Normalized Ratio 1.02 Activated Partial Thromboplast Time 34.7 Sodium Level 144 Potassium Level 3.7 Chloride Level 107 Carbon Dioxide Level 28 Anion Gap 9 Blood Urea Nitrogen 3 L Creatinine 0.63 Est Glomerular Filtrat Rate mL/min > 60 Glucose Level 117 Calcium Level 8.8 Total Bilirubin 0.3 Direct Bilirubin 0.00 Indirect Bilirubin 0.3 Aspartate Amino Transf (AST/SGOT) 29 Alanine Aminotransferase (ALT/SGPT) 90 H Alkaline Phosphatase 82 Total Protein 6.8 Albumin 3.4 Globulin 3.40 H Albumin/Globulin Ratio 1.00 Medications Medication Current Medications Dextrose/Sodium Chloride 1,000 ml @ 100 mls/hr Q10H IV Last administered on 08/10/18at 13:20; Admin Dose 100 MLS/HR; Start 08/08/18 at 22:30 Pantoprazole (Protonix Iv) 40 mg DAILY@06 IV Last administered on 08/10/18at 05:57; Admin Dose 40 MG; Start 08/09/18 at 06:00 Ceftriaxone Sodium 50 ml @ 100 mls/hr Q24H IVPB Last administered on 08/09/18at 22:26; Admin Dose 100 MLS/HR; Start 08/08/18 at 22:30 Acetaminophen (Tylenol Tab) 650 mg Q6H PRN PO MILD PAIN(1-3)OR ELEVATED TEMP; Start 08/08/18 at 22:30 Ondansetron HCl (Zofran Inj) 4 mg Q6H PRN IV NAUSEA AND/OR VOMITING; Start 08/08/18 at 22:30 Morphine Sulfate (morphine) 2 mg Q4H PRN IV SEVERE PAIN LEVEL 7-10 Last administered on 08/10/18at 13:19; Admin Dose 2 MG; Start 08/08/18 at 22:30 Influenza Virus Vaccine Quadrival (Fluzone) 0.5 ml ONCE ONCE IM* ; Start at 10:00; Stop 08/11/18 at 10:01 Diphenoxylate HCl/ Atropine (Lomotil) 1 tab Q6H PRN PO DIARRHEA; Start 08/10/18 at 01:30 Hydromorphone HCl (Dilaudid) 0.2 mg PACU PRN IV MILD PAIN 1-3; Start 08/10/18 at 08:00; Stop 08/10/18 at 15:00 Hydromorphone HCl (Dilaudid) 0.4 mg PACU PRN IV MOD PAIN 4-6; Start 08/10/18 at 08:00; Stop 08/10/18 at 15:00 Hydromorphone HCl (Dilaudid) 0.6 mg PACU PRN IV SEVERE PAIN 7-10; Start 08/10/18 at 08:00; Stop 08/10/18 at 15:00 Fentanyl (Sublimaze) 25 mcg PACU ORDER PRN IV MILD PAIN 1-3; Start 08/10/18 at 08:00; Stop 08/10/18 at 15:00 Fentanyl (Sublimaze) 50 mcg PACU ORDER PRN IV MOD PAIN 4-6; Start 08/10/18 at 08:00; Stop 08/10/18 at 15:00 Fentanyl (Sublimaze) 75 mcg PACU ORDER PRN IV SEVERE PAIN 7-10; Start 08/10/18 at 08:00; Stop 08/10/18 at 15:00 Oxycodone/ Acetaminophen (Percocet (5/ 325)) 1 tab PACU ORDER PRN PO .PAIN 1-5; Start 08/10/18 at 08:00; Stop 08/10/18 at 15:00 Oxycodone/ Acetaminophen (Percocet (5/ 325)) 2 tab PACU ORDER PRN PO .PAIN 6-10; Start 08/10/18 at 08:00; Stop 08/10/18 at 15:00 Ondansetron HCl (Zofran Inj) 4 mg PACU ORDER PRN IV NAUSEA/VOMITING; Start 08/10/18 at 08:00; Stop 08/10/18 at 15:00 Metoclopramide HCl (Reglan) 10 mg PACU ORDER PRN IV NAUSEA/VOMITING; Start 08/10/18 at 08:00; Stop 08/10/18 at 15:00 Labetalol HCl (Labetalol) 5 mg PACU ORDER PRN IV HIGH BLOOD PRESSURE; Start 08/10/18 at 08:00; Stop 08/10/18 at 15:00 Hydralazine HCl (Apresoline) 5 mg PACU ORDER PRN IV HIGH BLOOD PRESSURE; Start 08/10/18 at 08:00; Stop 08/10/18 at 15:00 Ephedrine Sulfate 5 mg PACU ORDER PRN IV BLOOD PRESSURE SUPPORT; Start 08/10/18 at 08:00; Stop 08/10/18 at 15:00 Meperidine HCl (Demerol) 25 mg PACU ORDER PRN IV .RIGORS; Start 08/10/18 at 08:00; Stop 08/10/18 at 15:00 Diphenhydramine HCl (Benadryl) 25 mg PACU ORDER PRN IV .PRURITUS; Start 08/10/18 at 08:00; Stop 08/10/18 at 15:00 Midazolam HCl (Versed) 0.5 mg PACU ORDER PRN IV .ANXIETY; Start 08/10/18 at 08:00; Stop 08/10/18 at 15:00 Acetaminophen (Tylenol Tab) 650 mg Q6H PRN PO MILD PAIN(1-3)OR ELEVATED TEMP; Start 08/10/18 at 10:00 Ibuprofen (Motrin) 600 mg Q6H PRN PO PAIN LEVEL 1-3 ; Start 08/10/18 at 10:00 Acetaminophen/ Hydrocodone Bitart ([place] (5/325)) 2 tab Q4H PRN PO Pain 7-10; Start 08/10/18 at 10:00 Acetaminophen/ Hydrocodone Bitart ([place] (5/325)) 1 tab Q4H PRN PO Pain 4-6; Start 08/10/18 at 10:00 Morphine Sulfate (morphine) 2 mg Q2H PRN IV Breakthrough PAIN; Start 08/10/18 at 10:00 VALERIO MAKI Aug 10, 2018 14:21
[2018-08-10] MEDS: CEFTRIAXONE 1 GM/50 ML (PMX) 50 ML IVPB SCH (22:41)
[2018-08-11] VITALS: BP 133/64; PULSE 75; RESP 18
[2018-08-11] MEDS: morphine 2 MG INJ IV PRN ×2 (03:09→07:32)
[2018-08-11] MEDS ORDERED: PANTOPRAZOLE (EC) 40 MG TAB PO SCH (06:00)
[2018-08-11 07:44] VITALS: BP 140/65; PULSE 73; RESP 18
[2018-08-11] MEDS: DEXTROSE 5%-0.9% NACL 1,000 ML IV SCH (09:57)
--- NOTE | 2018-08-11 09:58 | PN ---
Date/Time of Note Date/Time of Note DATE: 08/11/18 TIME: 09:56 Assessment/Plan VTE Prophylaxis Risk score (from Ns)>0 risk: 3 [place] [facility] [place] Yes Pharmacological prophylaxis: NA/contraindicated Pharm contraindication: low risk/ambulating Lines/Catheters IV Catheter Type (from [facility]): Peripheral IV Assessment/Plan Hospital Course Assessment/Plan 38-year-old female who presented with: 1. Acute pancreatitis, likely secondary to gallstones. Post lap jake pod # 1 2. Cholelithiasis. 3. Abnormal liver function tests, resolved. 4. Hypokalemia. 5. Obesity.' pLAN -Postop care, tolerating diet - TAVARES drained 100 ml, f/u surgery dc planning if ok with surgery Result Diagram: 08/10/1843508/10/18435 Subjective 24 Hr Interval Summary Free Text/Dictation Doing well POD#1 Started on low fat/jake tolerting it well Exam/Review of Systems Exam Vitals Vital Signs Date Temp Pulse Resp B/P (MAP) Pulse Ox O2 O2 Flow FiO2 Time Delivery Rate 08/11/18 98.2 73 18 140/65 92 07:44 (90) 08/10/18 Room Air 13:55 08/10/18 2.0 10:08 Intake and Output 08/10/18 08/10/18 08/11/18 1515:00 23:00 07:00 IntakeIntake Total 1850 ml 1200 ml 650 ml OutputOutput Total 50 ml 50 ml 850 ml BalanceBalance 1800 ml 1150 ml -200 ml Exam Tender to palpation in the epigastrium TAVARES Drain in place Medications Medication Current Medications Dextrose/Sodium Chloride 1,000 ml @ 100 mls/hr Q10H IV Last administered on 08/10/18at 22:41; Admin Dose 100 MLS/HR; Start 08/08/18 at 22:30 Ceftriaxone Sodium 50 ml @ 100 mls/hr Q24H IVPB Last administered on 08/10/18at 22:41; Admin Dose 100 MLS/HR; Start 08/08/18 at 22:30 Acetaminophen (Tylenol Tab) 650 mg Q6H PRN PO MILD PAIN(1-3)OR ELEVATED TEMP; Start 08/08/18 at 22:30 Ondansetron HCl (Zofran Inj) 4 mg Q6H PRN IV NAUSEA AND/OR VOMITING; Start 08/08/18 at 22:30 Morphine Sulfate (morphine) 2 mg Q4H PRN IV SEVERE PAIN LEVEL 7-10 Last administered on 08/11/18at 07:32; Admin Dose 2 MG; Start 08/08/18 at 22:30 Influenza Virus Vaccine Quadrival (Fluzone) 0.5 ml ONCE ONCE IM* ; Start 08/11/18 at 10:00; Stop 08/11/18 at 10:01 Diphenoxylate HCl/ Atropine (Lomotil) 1 tab Q6H PRN PO DIARRHEA; Start 08/10/18 at 01:30 Acetaminophen (Tylenol Tab) 650 mg Q6H PRN PO MILD PAIN(1-3)OR ELEVATED TEMP; Start 08/10/18 at 10:00 Ibuprofen (Motrin) 600 mg Q6H PRN PO PAIN LEVEL 1-3 ; Start 08/10/18 at 10:00 Acetaminophen/ Hydrocodone Bitart ([place] (5/325)) 2 tab Q4H PRN PO Pain 7-10; Start 08/10/18 at 10:00 Acetaminophen/ Hydrocodone Bitart ([place] (5/325)) 1 tab Q4H PRN PO Pain 4-6; Start 08/10/18 at 10:00 Morphine Sulfate (morphine) 2 mg Q2H PRN IV Breakthrough PAIN; Start 08/10/18 at 10:00 Pantoprazole (Protonix Tab) 40 mg DAILY@06 PO Last administered on 08/11/18at 06:43; Admin Dose 40 MG; Start 08/11/18 at 06:00 LAURIE GUADARRAMA MD Aug 11, 2018 09:58
--- NOTE | 2018-08-11 09:59 | PDOCDIS ---
Discharge Instructions DIAGNOSIS Discharge Diagnosis gallsstone pancreatitis s/p cholecystectomy CONDITION [id number] Patient Condition: [id number] Fair HOME CARE INSTRUCTIONS: [id number] Diet Instructions: [id number] Modified Fat ACTIVITY: [id number] Activity Restrictions: [id number] Slowly Increase Activity Rest between Activity Avoid heavy lifting FOLLOW UP/APPOINTMENTS Follow-up Plan f/u surgery in 1-2 weeks f/u pcp in 1 week return to ER if has severe abdominal pain/fevers LAURIE GUADARRAMA MD Aug 11, 2018 09:59
[2018-08-11] MEDS ORDERED: HYDR-3601 PO (10:00)
[2018-08-11] MEDS ORDERED: DOCU-144 PO (10:00)
[2018-08-11] MEDS ORDERED: INFLUENZA VIRUS VACCINE 0.5 ML (DISPENSING) IM* ONE (10:00)
--- NOTE | 2018-08-11 13:53 | PN ---
Date/Time of Note Date/Time of Note DATE: 08/11/18 TIME: 13:49 Assessment/Plan Lines/Catheters IV Catheter Type (from [facility]): Saline Lock Arora in Place (from Nrs): No Assessment/Plan Chief Complaint/Hosp Course 1. Gallstone Pancreatitis: -IS -ambulate -ice pack to abdominal wall -advance diet as tolerated -May be discharged with drain per medical team. Home health for drain care. To follow-up in office in 1 week. 2. Symptomatic Cholelithiasis -As above 3. Transaminitis with mildly elevated bilirubin from outside hospital: Much improved; likely passed stone -Monitor 4. Abdominal pain: Likely 2/2 #1 and 2; improved -Pain management 5. Obesity BMI: 32 -diet and exercise optimization -encourage weight loss Thank you. Patient seen and examined in collaboration with Dr. Piero Plascencia. Subjective 24 Hr Interval Summary Feels well. Status post laparoscopic was removed yesterday. Tolerating diet. No fevers, chills, sob, congested cough, cp, palpitations, pina, dizziness, nausea, vomiting, diarrhea, dysuria. Exam/Review of Systems Vital Signs Vitals Vital Signs Date Temp Pulse Resp B/P (MAP) Pulse Ox O2 O2 Flow FiO2 Time Delivery Rate 08/11/18 98.2 73 18 140/65 92 07:44 (90) 08/10/18 Room Air 13:55 08/10/18 2.0 10:08 Intake and Output 08/10/18 08/10/18 08/11/18 1515:00 23:00 07:00 IntakeIntake Total 1850 ml 1200 ml 650 ml OutputOutput Total 50 ml 50 ml 850 ml BalanceBalance 1800 ml 1150 ml -200 ml Exam Free Text/Dictation Constitutional: alert, oriented Psych: nl mood/affect; No anxiety Head: normocephalic, atraumatic Eyes: nl conjunctiva, EOMI, nl lids, nl sclera ENMT: nl external ears & nose, nl lips & teeth, mucosa pink and moist Neck: supple, non-tender Respiratory: normal air movement; No congested cough, No labored breathing Cardiovascular: regular rate and rhythm, nl pulses Gastrointestinal: soft, nondistended, tender (patricia-incisional, incision sites dry without drainage/bruising/discoloration); TAVARES drain: Serosanguineous Musculoskeletal: nl extremities to inspection, nl gait and stance Extremities: normal pulses Neurological: nl mental status, nl speech, nl strength Skin: rash or lesions Lymph: nl lymph nodes Results Result Diagram: 08/10/18 0436 08/10/18 0436 ARIADNE PINA NP Aug 11, 2018 13:53
[2018-08-11 14:06] VITALS: BP 138/81; PULSE 77; RESP 18
--- NOTE | 2018-08-11 14:52 | DS ---
DATE OF ADMISSION: 08/08/2018 DATE OF DISCHARGE: 08/11/2018 HISTORY OF PRESENTING ILLNESS AND HOSPITAL COURSE: A 38-year-old female with no past medical history who presented to [facility] on 08/06/2018 secondary to right upper quadrant pain. According to the patient, she was having right upper quadrant pain, nausea, vomiting, had some intermittent fev ers and chills. The patient was found to have a lipase of 404, amylase of 2656, PTH levels were less than 5, AST was 632, ALT 447, alkaline phosphatase 88. CBC showed a white count of 14.4. The patie nt had a CT of the abdomen and pelvis that showed findings consistent with acute pancreatitis, no leonel dence of cirrhosis, distended bladder. The patient had abdominal ultrasound that showed cholelithias is, no evidence of ductal dilatation. The patient was treated symptomatically for acute pancreatitis at outside hospital and was transferred to [facility] due to insurance reason. The patient was initially started on a clear liquid diet. LFTs were repeated that showed ALT came down to 118. Amylase and lipase were normal. The patient was seen by surgery consultation with Dr. Plascencia and a lso GI consultation with Dr. Clifford. The patient went for cholecystectomy on 08/10/2018. Postop, th e patient had TAVARES drainage that significantly improved, tolerating low fat diet, currently stable to b e discharged home by Dr. Plascencia. Wound care, will need TAVARES drainage. FINAL DISCHARGE DIAGNOSES: 1. Acute gallstone pancreatitis, status post cholecystectomy. 2. Symptomatic cholelithiasis, status post laparoscopic cholecystectomy. 3. Transaminitis with mild elevated bilirubin from outside hospital, improved. 4. Abdominal pain, improved. 5. Obesity. DISCHARGE CONDITION: Stable. DISCHARGE DIET: Low fat, low cholesterol. DISCHARGE MEDICATIONS: 1. [place] 1 tab p.o. q.4 p.r.n. pain. 2. Colace p.r.n. constipation. Dictated By: LAURIE GARDUNO/ZARA Conf#: [id number] DID#: [id number] CC: FILI PENALOZA MD; LOTUS PLASCENCIA MD;*EndCC*
== END 2018-08-11 15:27 | disposition home health service (06) | DRG 419 ==
LOC: MS1 20:10
PROVIDERS: ADMIT Internal Medicine Nephrology; ATTEND Internal Medicine Nephrology
PROC: 0FB04ZX Excision of Liver, Percutaneous Endoscopic Approach, Diagnostic (ICD-10-PCS; 2018-08-10)
PROC: 0FT44ZZ Resection of Gallbladder, Percutaneous Endoscopic Approach (ICD-10-PCS; principal; 2018-08-10 07:30)
DX: K85.10 Biliary acute pancreatitis without necrosis or infection (principal); K80.20 Calculus of gallbladder without cholecystitis without obstruction; E87.6 Hypokalemia; E66.9 Obesity, unspecified; Z68.32 Body mass index [BMI] 32.0-32.9, adult
CPT/HCPCS: 74300; 80053; 82150; 83690; 84703; 85025; 85610; 85730; 88304; 88307; 88313; 90686; C9113; J0690; J0696; J2175; J2270; J2405; J2710; J2765; J7042; Q9967